=== PATIENT | female | born 1965 | race Caucasian/White ===

== ENCOUNTER 2016-12-23 08:59 | Emergency (ER) | payer BC ==
--- NOTE | 2016-12-23 09:13 | UC ---
[facility] HPI - HPI Summary HPI Summary: 51 y/o female presents to the urgent care c/o broken molar with pain on the left upper jaw for the past 3 days. Pt reports pain is mild today 2/10, but last night was throbbing and 8/10. She is new to the area and needs a Dentist referral and a PCP referral. Pt also states on her way here she felt chest pain. However she has HX of GERD and Gastric Ulcer. She feels adriana pain starts there and radiated to her chest. He chest pain has now resolved. Pt denies SOB , N/V/D, cough, - History of Current Complaint Stated Complaint: ORAL COMPLAINT Time Seen by Provider: 12/23/16 09:09 Hx Obtained From: Patient Hx Last Menstrual Period: 2 years ago ?: No Onset/Duration: Gradual Onset, Lasting Days - 3 days, Still Present Severity: Moderate Pain Intensity: 4 Pain Scale Used: 0-10 Numeric Aggravating: Cold, Chewing - Allergies/Home Medications Allergies/Adverse Reactions: Allergies Allergy/AdvReac Type Severity Reaction Status Date / Time Sulfa Antibiotics Allergy Rash Verified 12/23/16 09:43 Home Medications: Home Medications Lisinopril [Lisinopril 2.5 MG-] 2.5 mg PO DAILY 12/23/16 [History Confirmed 09/03] PARoxetine HCL TAB* [Paxil TAB*] 30 mg PO DAILY 12/23/16 [History Confirmed 09/03] PMH/Surg Hx/FS Hx/Imm Hx Previously Healthy: Yes Cardiovascular History: Hypertension GI/ History: Gastroesophageal Reflux - diet modifications, not taking any medications, Ulcer - gatric - Surgical History Surgical History: None - Family History Known Family History: Positive: Hypertension - Social History Occupation: Employed Full-time Lives: With Family Review of Systems Constitutional: Negative Skin: Negative Eyes: Negative ENT: Dental Pain - with a broken molar Respiratory: Negative Cardiovascular: Chest Pain - on the way here which has now resolved Gastrointestinal: Negative Genitourinary: Negative Motor: Negative Neurovascular: Negative Musculoskeletal: Negative Neurological: Negative Psychological: Negative All Other Systems Reviewed And Are Negative: Yes Physical Exam Triage Information Reviewed: Yes Appearance: Well-Appearing, No Pain Distress, Well-Nourished, Obese Vital Signs Reviewed: Yes Eye Exam: Normal Eyes: Positive: Conjunctiva Clear - PERRL, EOMI ENT Exam: Normal ENT: Positive: Normal ENT inspection, Hearing grossly normal, Pharynx normal, TMs normal. Negative: Tonsillar swelling, Tonsillar exudate, Trismus Dental: Positive: Percussion Tenderness @ - LEft upper molar #13 and #15, Gross Decay/Caries @ - Pt with poor dental hygiene, Dental Fracture @ - molar # 13, Abscess @ - at the level #13 molar, mild swellin and tenderness on palpation. Dental Complaint Course/Dx - Course Course Of Treatment: 51 y/o female presents to the urgent care c/o broken molar with pain on the left upper jaw for the past 3 days. Pt reports pain is mild today 2/10, but last night was throbbing and 8/10. She is new to the area and needs a Dentist referral and a PCP referral. Pt also states on her way here she felt chest pain. However she has HX of GERD and Gastric Ulcer. She feels adriana pain starts there and radiated to her chest. He chest pain has now resolved. Pt denies SOB, N/V/D, cough. Hx obtained. EKG ordered: NSR, R:73bpm, Borderline MS interval, RAD. Patient with dental abscess and Caries. Pt Rx Amoxicilin PO and Tylenol PO for pain. Pt is also taking Tramadol Po at home for pain. However, Pt with GERD. Pt Rx Omeprazole PO to alleviate symptoms and advised on dietary modification. F/u with Dentist as soon as possible. PT given the [facility] [place] referral line to set up appt with a PCP for further management on her HTN since BP today elevated. Advised decrease salt in diet and monitor BP. Pt understood and agreed. Left the clinic ambulating A&OX3 - Differential Dx/Diagnosis Differential Diagnosis/Dx: Dental Abscess, Dental Caries, Gingivitis, Peridontic Disease, Peritonsillar Abcess, Tonsillitis Provider Diagnoses: 1- Dental abscess. 2- GERD. 3- Uncontrolled HTN Discharge - Discharge Plan Condition: Stable Disposition: HOME Prescriptions: Acetaminophen TAB* [Tylenol TAB*] 650 mg PO Q4H PRN #30 tab PRN Reason: Pain Amoxicillin PO (*) [Amoxicillin 875 MG (*)] 875 mg PO BID #20 tab Omeprazole CAP* [Prilosec CAP* 20 MG] 20 mg PO DAILY #30 cap Patient Education Materials: Dental Abscess (ED), Gastroesophageal Reflux Disease (ED), Low Sodium Diet (ED) Referrals: No Primary Care Phys,NOPCP [Primary Care Provider] - [facility] – [place] PHYSICIAN REFERRAL [Outside] Additional Instructions: 1-Please take full course of antibiotic to avoid resistance. 2- Take Tylenol as instructed after meals to alleviate pain and swelling. Please increase fluid intake. 3- F/u with a Dentist Alexandro Davis as soon as possible for further treatment. 4-Your BP today is elevated, please decrease salt in your diet, monitor your BP , if it continues to be elevated please f/y with your PCP for further management. Your EKG is normal now. However If you continue with your chest pain and develop nausea, vomiting please go immediately to the ER for further treatment. 5- If symptoms do not improve or worsen please return to the urgent care or f/u with your PCP for further evaluation and treatment
[2016-12-23 09:43] VITALS: BP 158/106
== END 2016-12-23 10:04 | disposition home or self-care (01) ==
LOC: UCCORT 08:59
DX: K04.7 Periapical abscess without sinus (principal); K21.9 Gastro-esophageal reflux disease without esophagitis; I10 Essential (primary) hypertension
CPT/HCPCS: 93005; 99202; G0463